=== PATIENT | male | born 1950 | race Caucasian/White ===

== ENCOUNTER → 2018-06-20 08:25 | Outpatient (CLI) | payer OTHER, SELFPAY ==
[2018-06-20 09:50] LABS: Add Manual Diff / Slide Review NO; Basophils Absolute Auto 0 /uL (0-100); Basophils Percent Auto 0.2 % (0-2); Eosinophils Absolute Auto 200 /uL (0-450); Eosinophils Percent Auto 3.3 % (2-4); Hematocrit 45.2 % (41-53); Hemoglobin 15.8 g/dL (13.5-17.5); Lymphocytes Absolute Auto 1100 /uL (1100-4500); Lymphocytes Percent Auto 19.9 % (25-40); Mean Corpuscular Hemoglobin 31.6 PG (26-34); Mean Corpuscular Volume 90.4 fL (80-100); Monocytes Absolute Auto 300 /uL (0-900); Monocytes Percent Auto 6.2 % (3-14); Neutrophils Absolute Auto 3900 /uL (1500-7000); Neutrophils Percent Auto 70.4 % (50-75); Platelet Count 156 X10^3/uL (150-400); Red Cell Distribution Width 14.5 % (11.6-14.8); White Blood Cell Count 5.6 X10^3/uL (4.5-11.0)
[2018-06-20 10:19] LABS: Alanine Aminotransferase 45 IU/L (21-72); Albumin 4.6 g/dL (3.5-5.0); Albumin Globulin Ratio 1.9 (1.0-2.8); Alkaline Phosphatase 62 U/L (38-126); Aspartate Aminotransferase 35 IU/L (17-59); BUN Creatinine Ratio 13.1 (6-22); Blood Urea Nitrogen 17 mg/dL (9-20); Calcium 9.4 mg/dL (8.4-10.2); Carbon Dioxide 27 mmol/L (22-32); Chloride 102 mmol/L (98-107); Cholesterol 139 mg/dL (140-199); Estimated Glomerular Filt Rate 55.1 mL/min (>60); Globulin 2.4 g/dL (1.7-4.1); Glucose 119 mg/dL (80-110); HDL Cholesterol 38 mg/dL (40-60); HEMOLYSIS < 15 (0-50); LDL Cholesterol Calculated 63 mg/dL (<100); Potassium 4.3 mmol/L (3.4-5.1); Sodium 140 mmol/L (137-145); Triglycerides 189 mg/dL (35-150)
[2018-06-20 10:44] LABS: Prostate Specific Antigen 2.01 ng/mL (0.10-4.00)
[2018-06-20 11:03] LABS: Hep C Virus Ab w/Reflex Quant NEGATIVE s/c (NEGATIVE)
== END ==
PROVIDERS: PCP Internal Medicine; Visit Provider Internal Medicine
DX: I10 Essential (primary) hypertension (principal); M54.40 Lumbago with sciatica, unspecified side; Z00.00 Encounter for general adult medical examination without abnormal findings
CPT/HCPCS: 36415; 80053; 80061; 84153; 85025; 86803

== ENCOUNTER → 2018-09-12 06:55 | Outpatient (CLI) | payer OTHER, SELFPAY ==
--- NOTE | 2018-09-12 06:58 | DI.MRI.S_ITS ---
PROCEDURE: MR LUMBAR SPINE WO CON INDICATIONS: Low back pain TECHNIQUE: Noncontrast sagittal T1 spin echo and T2 fast echo, sagittal STIR, axial T1 and T2 fast spin echo through the lumbar spine. In cases with scoliosis, additional coronal T2 fast spin echo may be performed. COMPARISON: [facility], CR, XR LUMBAR SPINE MIN 4V, 09/12/2018, 7:58. FINDINGS: Image quality: Excellent. Alignment and Curvature: There is normal bony alignment. Bone Marrow: Marrow is of normal overall signal. No acute vertebral body compression fractures. Spinal Cord: Conus medullaris terminates at the L1-L2 level. Visualized cord demonstrates normal signal and size. Mildly prominent central canal at the level of T12. Paraspinous Soft Tissues: No paravertebral masses. L1-L2: Mild disc bulge. No canal stenosis or foraminal stenosis. Facet joints are unremarkable. L2-L3: Normal appearance. L3-L4: No canal stenosis or foraminal stenosis. Right facet hypertrophy. L4-L5: Diffuse disc bulge, eccentric to the right, with deviation of the right L5 nerve root posteriorly in the right lateral recess. Bilateral facet hypertrophy. Moderate right foraminal narrowing with flattening of the right L4 nerve root sleeve. L5-S1: No canal stenosis. Bilateral facet hypertrophy. Mild bilateral foraminal narrowing. IMPRESSION: 1. Multilevel facet hypertrophy as described above 2. At L4-L5, the right L5 nerve root is mildly deviated posteriorly in the right lateral recess secondary to disc bulge. There is also moderate right foraminal narrowing with flattening of the right L4 nerve root sleeve. Dictated by: Isai Moore M.D. on 09/12/2018 at 8:51 Approved by: Isai Moore M.D. on 09/12/2018 at 9:00
--- NOTE | 2018-09-12 06:58 | DI.RAD.S_ITS ---
PROCEDURE: XR LUMBAR SPINE MIN 4V INDICATIONS: Low back pain TECHNIQUE: 4 views of the lumbar spine were acquired. COMPARISON: Outside Facility, RG, XR L-SPINE 2-3V, 04/12/2008, 14:39. FINDINGS: Bones: No fracture or focal osseous destruction. Multilevel degenerative endplate sclerosis and spurring. Diffuse facet arthropathy. Diffuse mild uniform narrowing of lumbar disc spaces. Moderate bilateral hip degeneration. Soft tissues: Incidentally noted presumed cholelithiasis. Oblique images: No pars defects. IMPRESSION: Mild diffuse lumbar spondylosis without definite interval change since 04/12/08. Diffuse facet arthropathy, progressed since the prior study. Incidental chronic cholelithiasis. Dictated by: Rik Tsai M.D. on 09/12/2018 at 11:08 Approved by: Rik Tsai M.D. on 09/12/2018 at 11:10
== END ==
PROVIDERS: PCP Internal Medicine; Visit Provider Physical Medicine & Rehabilitation
DX: M51.26 Other intervertebral disc displacement, lumbar region (principal); M48.061 Spinal stenosis, lumbar region without neurogenic claudication; M47.817 Spondylosis without myelopathy or radiculopathy, lumbosacral region
CPT/HCPCS: 72110; 72148

== ENCOUNTER 2018-09-25 14:40 | Outpatient (CLI) | payer OTHER, SELFPAY ==
[2018-09-25] VITALS (8 sets, daily range): BP systolic 111–129; BP diastolic 66–81; PULSE 67–85; RESP 16; TEMP 36.6; O2SAT 94–96
--- NOTE | 2018-09-25 14:42 | DI.RAD.S_ITS ---
PROCEDURE: PAIN L/S TRANSFORAMINAL INJECT INDICATIONS: RADICULOPATHY FINDINGS: Fluoroscopic spot filming was performed to verify placement of spinal needles at the right L4-5 level(s), as labeled on the films. Appropriate location(s) of the needle tip(s) was confirmed by injection of iodinated contrast. IMPRESSION: Pleural guidance was provided intraoperatively for right L5 transforaminal epidural steroid injection.. Dictated by: Arian Pompa M.D. on 09/26/2018 at 10:46 Approved by: Arian Pompa M.D. on 09/26/2018 at 10:47
[2018-09-25] MEDS: MIDAZOLAM 5 MG/5 ML VIAL IV (15:33)
[2018-09-25] MEDS: fentaNYL 100 MCG/2 ML INJ 50 MCG IV (15:33)
[2018-09-25] MEDS: BUPIVACAINE 0.25% (PF) VIAL 2 ML INJ (15:41)
[2018-09-25] MEDS: BETAMETHASONE 30 MG/5 ML MDV 12 MG INJ (15:41)
[2018-09-25] MEDS: IOPAMIDOL 15 ML VIAL 3 ML INJ (15:41)
[2018-09-25] MEDS: DEXAMETHASONE 10 MG/ML VIAL INJ (15:41)
--- NOTE | 2018-09-25 15:43 | PC.NURSE ---
ASSISTING PT OFF TABLE AND TRANSPORTING TO POST PROC AREA IN STABLE CONDITION
--- NOTE | 2018-09-25 15:49 | PC.NURSE ---
Pt returned via wheelchair awake and alert, able to transfer from w/c to chair with standby assist. Resumed monitoring from Cheyenne HAMMONDS.
--- NOTE | 2018-09-25 15:50 | P.PCN_ITS ---
Procedures Date/Time Date of procedure: 09/25/18 Time of procedure: 15:48 General Procedure description: PREOP DIAGNOSIS 1. FORMAINAL STENOSIS WITH LE SYMPTOMS POST OP DIAGNOSIS 1. FORMAINAL STENOSIS WITH LE SYMPTOMS PROCEDURES 1. FLUOROSCOPICALLY GUIDED CONTRAST CONTROLLED TRANSFORAMINAL EPIDURAL STEROID INJECTION - RIGHT L4/5 TFESI PHYSICIAN: Rick Arriaga DO INDICATIONS: Noel is referred by Dr. Cohen for treatment of Foraminal Stenosis with Right LE Symptoms FINDINGS Foraminal Nerve Root Compression secondary to disc disease and facet hypertrophy DESCRIPTION OF PROCEDURE: Following review of allergy and review of potential side effects and complications, including, but not necessarily limited to, infection, allergic reaction, local tissue breakdown, stroke, temporary or permanent nerve injury, paralysis, and possible , the patient indicated that the patient understood and agreed to proceed. An informed consent document was signed by the patient, witnessed by a nurse, and placed in the patient's chart. Additionally, other treatment options including medications, modalities, and physical therapy were reviewed with the patient. After review of previous anaesthesic history and IV conscious sedation the patient was deemed safe to proceed with todays procedure with IV conscious sedation as ASA class II designation. Safety time-out was performed to confirm patient ID, procedure to be performed and site of procedure. IV sedation was accomplished with a combination of 2mg of Versed and 50mcg of Fentanyl was administered by the RN after DO order, titrated to patient comfort during the course of the procedure while the patient remained responsive to all verbal commands In the prone position following sterile prep and drape of the lumbar region, the Right L4/5 posterior neuroforamen was identified fluoroscopically. The skin was anesthetized via a 25-gauge 1.5-inch needle with 1% lidocaine solution. At this point, a 25-gauge 3.5-inch spinal needle was atraumatically introduced and advan oliverio under fluoroscopic guidance through the posterior Right L4/5 neuroforamen to approximately the anterior aspect of the canal. Depth was confirmed on lateral view. Following negative aspiration, injection of approximately 1.5 cc of Isovue 200 under live fluoroscopy in the AP view confirmed excellent flow along the nerve root, into the epidural space without vascular or intrathecal uptake observed Radiological data, including multiple fluoroscopic views of the lumbosacral spine, reveal a spinal needle at the right L4/5 posterior neuroforamen. Subsequent views show flow of contrast material flowing superiorly and inferiorly along the nerve root confirming epidural flow. Subsequently, a test dose of 1.5 cc of 1% lidocaine solution was administered and patient was observed for two minutes for signs or symptoms of complications, including abdominal pain, shortness of breath, bilateral upper or lower extremity weakness, nausea and vomiting, prior to steroid injection. At this point, a total of 3cc or 10mg of dexamethasone and 12mg of betamethasone was injected without incident. The procedure tolerated the procedure well without signs or symptoms of complications prior to transfer to the recovery area continued monitoring without incident.The patient was then transferred to the recovery area where they were observed for an appropriate time after the injection. The patient reported a VAS score of 7 prior to the procedure and a post- procedure VAS of 0. Total Fluoroscopy Time: 20.9 seconds Total Conscious Sedation Time: 24min POST OP INSTRUCTIONS The patient was provided a Pain Log to continue to record their response to the target-specific procedure prior to follow-up visit with their referring physician. Additionally, specific post-injection care instructions and a contact number to our office were provided if concerns arise regarding possible complications associated with the procedure are suspected. Rick Arriaga, Complications: none
== END 2018-09-25 16:08 ==
LOC: RAD 14:41
PROVIDERS: PCP Internal Medicine; Visit Provider Physical Medicine & Rehabilitation
DX: M54.17 Radiculopathy, lumbosacral region (principal); M54.16 Radiculopathy, lumbar region; M51.26 Other intervertebral disc displacement, lumbar region
CPT/HCPCS: 64483; 99152; J0702; J1100; J2250; J3010

== ENCOUNTER → 2018-12-03 10:56 | Outpatient (CLI) | payer OTHER, SELFPAY ==
[2018-12-03 12:22] LABS: Alanine Aminotransferase 33 IU/L (21-72); Albumin 4.3 g/dL (3.5-5.0); Albumin Globulin Ratio 1.8 (1.0-2.8); Alkaline Phosphatase 53 U/L (38-126); Aspartate Aminotransferase 29 IU/L (17-59); BUN Creatinine Ratio 12.7 (6-22); Bilirubin Total 1.2 mg/dL (0.2-1.3); Blood Urea Nitrogen 19 mg/dL (9-20); Calcium 8.7 mg/dL (8.4-10.2); Carbon Dioxide 26 mmol/L (22-32); Chloride 103 mmol/L (98-107); Cholesterol 152 mg/dL (140-199); Estimated Glomerular Filt Rate 46.5 mL/min (>60); Globulin 2.4 g/dL (1.7-4.1); Glucose 109 mg/dL (80-110); HDL Cholesterol 42 mg/dL (40-60); HEMOLYSIS < 15 (0-50); LDL Cholesterol Calculated 69 mg/dL (<100); Potassium 4.2 mmol/L (3.4-5.1); Sodium 140 mmol/L (137-145); Total Protein 6.7 g/dL (6.3-8.2); Triglycerides 205 mg/dL (35-150)
[2018-12-03 12:49] LABS: Prostate Specific Antigen 2.03 ng/mL (0.10-4.00)
== END ==
PROVIDERS: PCP Internal Medicine; Visit Provider Internal Medicine
DX: N40.1 Benign prostatic hyperplasia with lower urinary tract symptoms (principal); I10 Essential (primary) hypertension
CPT/HCPCS: 36415; 80053; 80061; 84153

== ENCOUNTER → 2019-05-02 11:32 | Outpatient (CLI) | payer OTHER, SELFPAY ==
[2019-05-02 12:26] LABS: BUN Creatinine Ratio 14.2 (6-22); Blood Urea Nitrogen 17 mg/dL (9-20); Calcium 9.1 mg/dL (8.4-10.2); Carbon Dioxide 30 mmol/L (22-32); Chloride 104 mmol/L (98-107); Estimated Glomerular Filt Rate > 60.0 mL/min (>60); Glucose 113 mg/dL (80-110); HEMOLYSIS < 15 (0-50); Potassium 4.6 mmol/L (3.4-5.1); Sodium 141 mmol/L (137-145)
== END ==
PROVIDERS: PCP Internal Medicine; Referring Provider Registered Nurse; Visit Provider Registered Nurse
DX: N28.9 Disorder of kidney and ureter, unspecified (principal)
CPT/HCPCS: 36415; 80048

== ENCOUNTER → 2019-08-13 10:28 | Outpatient (CLI) | payer OTHER, SELFPAY ==
[2019-08-14 09:49] LABS: COVID19 Sendout Not Detected (Not Detect)
== END ==
PROVIDERS: PCP Internal Medicine; Visit Provider Registered Nurse
DX: Z01.818 Encounter for other preprocedural examination (principal)
CPT/HCPCS: 87635

== ENCOUNTER 2019-08-15 12:20 | Outpatient (CLI) | payer OTHER, SELFPAY ==
[2019-08-15] VITALS (8 sets, daily range): BP systolic 126–147; BP diastolic 82–98; PULSE 67–81; RESP 14–16; TEMP 37.1; O2SAT 94–98
--- NOTE | 2019-08-15 12:22 | DI.RAD.S_ITS ---
PROCEDURE: PAIN L/S FACET INJ/BLK 1ST BISHNU COMPARISON: None. INDICATIONS: SPONDYLSOIS FINDINGS: Right-sided facet joint needle tip localization has been achieved at the L4-5 and L5-S1 levels. IMPRESSION: Successful needle tip localization of the facet joints as discussed, lower lumbosacral spine on the right. Dictated by: Sanjay Treadwell M.D. on 08/15/2019 at 14:33 Approved by: Sanjay Treadwell M.D. on 08/15/2019 at 14:34
[2019-08-15] MEDS: MIDAZOLAM 5 MG/5 ML VIAL IV (13:25)
[2019-08-15] MEDS: fentaNYL 100 MCG/2 ML INJ 50 MCG IV (13:26)
[2019-08-15] MEDS: BETAMETHASONE 30 MG/5 ML MDV 12 MG INJ (13:26)
[2019-08-15] MEDS: BUPIVACAINE 0.5% (PF) VIAL 2 ML INJ (13:27)
[2019-08-15] MEDS: IOPAMIDOL 15 ML VIAL 3 ML INJ (13:27)
--- NOTE | 2019-08-15 13:30 | PC.NURSE ---
ASSISTING PT OFF TABLE AND TRANSPORTING TO POST PROC AREA IN STABLE CONDITION. PASSING RN CARE OF PT OFF TO [facility] CHEATHAM.
--- NOTE | 2019-08-15 13:38 | P.PCN_ITS ---
Procedures Date/Time Date of procedure: 08/15/19 Time of procedure: 13:39 General Procedure description: PREOP DIAGNOSIS 1. FACET ARTHROPATHY 2. AXIAL LBP 3. MULTILEVEL DDD POST OP DIAGNOSIS 1. FACET ARTHROPATHY 2. AXIAL LBP 3. MULTILEVEL DDD PROCEDURES 1. FLUORSCOPICALLY GUIDED CONTRAST CONTROLLED FACET JOINT INJECTIONS BILATERAL L4/5, L5/S1 PHYSICIAN: DO BENY Cortez Noel is referred by for treatment of Axial LBP FINDINGS Multilevel Facet Arthropathy with Clinically significant axial LBP DESCRIPTION OF PROCEDURE Fluoroscopically guided, contrast-controlled bilateral L4/5, L5/S1 facet joint injections. Following review of allergy and review of potential side effects and complications, including, but not necessarily limited to, infection, allergic reaction, local tissue breakdown, stroke, temporary or permanent nerve injury, paralysis, and possible , the patient indicated that the patient understood and agreed to proceed. An informed consent document was signed by the patient, witnessed by a nurse, and placed in the patient's chart. Additionally, other treatment options including medications, modalities, and physical therapy were reviewed with the patient. After review of previous anaesthesic history and IV conscious sedation the patient was deemed safe to proceed with todays procedure with IV conscious sedation as ASA class II designation. Safety time-out was performed to confirm patient ID, procedure to be performed and site of procedure. IV sedation was accomplished with a combination of 2mg of Versed and 50mcg of Fentanyl was administered by the RN after DO order, titrated to patient comfort during the course of the procedure while the patient remained responsive to all verbal commands In the prone position, following sterile prep and drape of the lumbar region, the posterior aspect of the L4/5, L5/S1 facet joints were identified fluoroscopically. The skin was anesthetized via a 25-gauge 1.5-inch needle with 1% lidocaine solution into the corresponding facet joints. At this point, a 22- gauge 3.5-inch spinal needle was atraumatically introduced and advanced under fluoroscopic guidance into the corresponding facet joints. Following negative aspiration, injections of approximately 0.2cc of Isovue 200 confirmed interarticular placement without vascular uptake. The identical procedure was then performed at the L4/5, L5/S1 facet joints on the left. Radiological data, including multiple fluoroscopic views of the lumbosacral spine, reveal a spinal needle at the L4/5, L5/S1 facet joints bilaterally. Subsequent views show flow of contrast material both superiorly and inferiorly within the joint space without vascular or intrathecal uptake. At this point, a total of 0.5cc including a mixture of 0.25cc Marcaine and 0.25cc betamethasone was injected without complication into each of the corresponding facet joints. The patient tolerated the procedure well without signs or symptoms of complications prior to transfer to the recovery area continued monitoring without incident. The patient was then transferred to the recovery area where they were observed for an appropriate period of time after the injection. The patient reported a VAS score of 7 prior to the procedure and a post- procedure VAS of 0. Total Fluoroscopy Time: 11 seconds Total Conscious Sedation Time: 24 min POST OP INSTRUCTIONS The patient was provided a Pain Log to continue to record their response to the target-specific procedure prior to follow-up visit with their referring physician. Additionally, specific post-injection care instructions and a contact number to our office were provided if concerns arise regarding possible complications associated with the procedure are suspected. Rick Arriaga, Complications: none
== END 2019-08-15 14:00 | disposition home or self-care (01) ==
PROVIDERS: PCP Internal Medicine; Referring Provider Internal Medicine; Visit Provider Physical Medicine & Rehabilitation
DX: M47.816 Spondylosis without myelopathy or radiculopathy, lumbar region (principal); M47.817 Spondylosis without myelopathy or radiculopathy, lumbosacral region; M54.5 Low back pain; M51.36 Other intervertebral disc degeneration, lumbar region; M51.37 Other intervertebral disc degeneration, lumbosacral region
CPT/HCPCS: 64493; 64494; 99152; J0702; J2250; J3010

== ENCOUNTER → 2019-11-02 09:56 | Outpatient (CLI) | payer OTHER, SELFPAY ==
[2019-11-03 20:42] LABS: COVID19 Sendout Not Detected (Not Detect)
== END ==
PROVIDERS: PCP Internal Medicine; Visit Provider Physician Assistant
DX: Z11.59 Encounter for screening for other viral diseases (principal)
CPT/HCPCS: 87635

== ENCOUNTER 2019-11-05 09:24 | Outpatient (CLI) | payer OTHER, SELFPAY ==
[2019-11-05] VITALS (8 sets, daily range): BP systolic 121–175; BP diastolic 71–103; PULSE 61–67; RESP 10–15; O2SAT 13–100
--- NOTE | 2019-11-05 09:26 | DI.RAD.S_ITS ---
PROCEDURE: PAIN L/S FACET INJ/BLK 1ST BISHNU COMPARISON: [facility], , PAIN L/S FACET INJ/BLK 1ST BISHNU, 08/15/2019, 12:20. INDICATIONS: SPONDYLOSIS Fluoroscopic spot filming was performed to verify placement of spinal needles at the L4, L5, S1 level(s), as labeled on the films. Appropriate location(s) of the needle tip(s) was confirmed by injection of iodinated contrast. Dictated by: Rik Tsai M.D. on 11/05/2019 at 14:22 Approved by: Rik Tsai M.D. on 11/05/2019 at 14:23
[2019-11-05] MEDS: fentaNYL 100 MCG/2 ML INJ 50 MCG IV (10:40)
[2019-11-05] MEDS: BUPIVACAINE 0.5% (PF) VIAL 5 ML INJ (10:41)
[2019-11-05] MEDS: LIDOCAINE 1% 20 ML 10 ML INJ (10:42)
[2019-11-05] MEDS: IOPAMIDOL 15 ML VIAL 3 ML INJ (10:42)
[2019-11-05] MEDS: MIDAZOLAM 5 MG/5 ML VIAL IV (10:44)
--- NOTE | 2019-11-05 10:55 | P.PCN_ITS ---
Date/Time/Diagnoses Date of procedure: 11/05/19 Time of procedure: 10:55 Pre-procedure diagnosis: 1. FACET ARTHROPATHY Post-procedure diagnosis: same Procedure Notes Procedure: 1. BILATERAL- L4, L5 and S1 DIAGNOSTIC MB BLOCKS with LA Anesthetic Indications: Noel is referred by Dr. Cohen for treatment of Bilateral Axial LBP. Physician: Rick Arriaga Total Fluoroscopy time (seconds): 13 Total sedation minutes: 14 Complications: none Procedure in detail & Post-procedure care: DESCRIPTION OF PROCEDURE Fluoroscopically guided, contrast-controlled bilateral L4, L5 and S1 medial branch blocks with 0.5cc of 0.5% Marcaine. Following review of allergy and review of potential side effects and complications, including, but not necessarily limited to, infection, allergic reaction, local tissue breakdown, nerve injury, paralysis, stroke and possible , the patient indicated that the patient understood and agreed to proceed. An informed consent document was signed by the patient, witnessed by a nurse, and placed in the patient's chart. After review of previous anaesthesic history and IV conscious sedation the patient was deemed safe to proceed with today's procedure with IV conscious sedation as ASA class II designation. Safety time-out was performed to confirm patient ID, procedure to be performed and site of procedure. IV sedation was accomplished with a combination of 3mg of Versed and 50mcg of Fentanyl was administered by the RN after DO order, titrated to patient comfort during the course of the procedure while the patient remained responsive to all verbal commands In the prone position, following sterile prep and drape of the lumbar region, the right L4, L5 and S1 anatomical location of the medial branch of the dorsal ramus was identified fluoroscopically. Subsequently an anesthetic skin wheal using 1% lidocaine solution was initiated at each of the anatomical spots. Subsequently then a 22-gauge 3.5-inch spinal needle was atraumatically introduced and advanced under fluoroscopic guidance at each of the corresponding sites at the right L4, L5 and S1 MB. After negative aspiration, 0.2cc of Isovue 200 was injected, confirming placement without vascular or intrathecal uptake. Subsequently then 0.5cc of 0.5% Marcaine solution was injected at each of the corresponding sites at the right L4, L5 and S1 medial branch locations. The identical procedure was replicated on the left. The patient tolerated the procedure well without signs or symptoms of complications prior to transfer to the recovery area continued monitoring without incident. Post-procedure, the patient was monitored initiating provocative activities to measure the amount of relief from block of the facetogenic pain. The patient reported a VAS of 7 prior to the procedure and a post-procedure VAS of 1. It has been a pleasure to assist in the diagnostic and therapeutic care of your patient. POST OP INSTRUCTIONS The patient was provided with a Pain Log to complete over the next several hours and subsequent days prior to the patient's follow up with the ordering physician. If the patient has practicing md anesthesiologist relief to the solution applied, then they may be a candidate for medial branch rhizotomy. The patient is aware, was provided, once again, with a Pain Log and will follow up with the referring physician for review and clinical correlation
--- NOTE | 2019-11-05 12:57 | PC.NURSE ---
1050 Pt tolerated procedure well, assisted from table to wc, rtn to pre proc room for further monitoring
== END 2019-11-05 11:20 | disposition home or self-care (01) ==
LOC: RAD 09:25
PROVIDERS: PCP Internal Medicine; Referring Provider Internal Medicine; Visit Provider Physical Medicine & Rehabilitation
DX: M47.817 Spondylosis without myelopathy or radiculopathy, lumbosacral region (principal); M47.816 Spondylosis without myelopathy or radiculopathy, lumbar region
CPT/HCPCS: 64493; 64494; 99152; J2250; J3010

== ENCOUNTER → 2019-12-25 11:48 | Outpatient (CLI) | payer OTHER, SELFPAY ==
--- NOTE | 2019-12-25 11:49 | DI.RAD.S_ITS ---
PROCEDURE: XR LUMBAR SPINE MIN 4V INDICATIONS: PAIN TECHNIQUE: 5 views of the lumbar spine were acquired. COMPARISON: [facility], CR, XR LUMBAR SPINE MIN 4V, 09/12/2018, 7:58. FINDINGS: Bones: Five nonrib-bearing vertebrae are present. There is normal bony alignment. No vertebral body compression fractures. No suspicious bony lesions. The degenerative disc disease along the lumbosacral spine has not worsened, from 09/12/18. It is mild in overall severity. Facet osteoarthritis is moderate from L3 through S1 and becomes progressively more prominent as the lumbosacral junction is approach. This was previously present. Soft tissues: Overlying bowel gas pattern is normal. No new suspicious soft tissue calcifications and a very large gallstone is seen at the right upper quadrant.. Oblique images: No pars defects. IMPRESSION: Very large gallstone identified right upper quadrant, measuring up to 3.5 cm in maximal axial dimension. A stone of this size has potential future risk for development of gallstone ileus. Surgical consultation may be warranted despite absence of focal pain in this area at this time. No worsening of degenerative disc disease from 09/12/18. Facet osteoarthritis is moderate at L3-4 and becomes more prominent at L4-5 and L5-S1 with facet osteoarthritis as the specific degenerative change that progresses as the lumbosacral junction is approached. Spinal and foraminal stenosis at L4-5 and especially L5-S1 may be present. Dictated by: Sanjay Treadwell M.D. on 12/25/2019 at 12:14 Approved by: Sanjay Treadwell M.D. on 12/25/2019 at 12:17
== END ==
PROVIDERS: PCP Internal Medicine; Referring Provider Physical Medicine & Rehabilitation; Visit Provider Physical Medicine & Rehabilitation
DX: M51.17 Intervertebral disc disorders with radiculopathy, lumbosacral region (principal); M47.26 Other spondylosis with radiculopathy, lumbar region; M47.27 Other spondylosis with radiculopathy, lumbosacral region; M48.061 Spinal stenosis, lumbar region without neurogenic claudication; M48.07 Spinal stenosis, lumbosacral region; K80.20 Calculus of gallbladder without cholecystitis without obstruction
CPT/HCPCS: 72110

== ENCOUNTER → 2020-01-13 09:31 | Outpatient (CLI) | payer OTHER, SELFPAY ==
[2020-01-14 00:29] LABS: COVID19 Sendout Not Detected (Not Detect)
== END ==
PROVIDERS: PCP Internal Medicine; Visit Provider Physician Assistant
DX: Z11.59 Encounter for screening for other viral diseases (principal)
CPT/HCPCS: 87635

== ENCOUNTER 2020-01-16 07:24 | Outpatient (CLI) | payer OTHER, SELFPAY ==
[2020-01-16] VITALS (10 sets, daily range): BP systolic 102–135; BP diastolic 60–86; PULSE 46–74; RESP 10–23; TEMP 36.2; O2SAT 92–97
--- NOTE | 2020-01-16 07:26 | DI.RAD.S_ITS ---
PROCEDURE: PAIN L/S MED/LAT N RFA INDICATIONS: SPONDYLOSIS COMPARISON: None. FINDINGS: Fluoroscopic spot filming was performed to verify placement of spinal needles at the bilateral L4, L5, and S1 nerve root level(s), as labeled on the films. Appropriate location(s) of the needle tip(s) was confirmed by injection of iodinated contrast. IMPRESSION: Successful bilateral needle tip localizations for L4, L5, and S1 bilateral rhizotomy procedures. Six total procedures. Dictated by: Sanjay Treadwell M.D. on 01/16/2020 at 9:33 Approved by: Sanjay Treadwell M.D. on 01/16/2020 at 9:34
[2020-01-16] MEDS: MIDAZOLAM 5 MG/5 ML VIAL IV (08:37)
[2020-01-16] MEDS: fentaNYL 100 MCG/2 ML INJ 50 MCG IV (08:37)
[2020-01-16] MEDS: BUPIVACAINE 0.5% (PF) VIAL 2 ML INJ (08:57)
[2020-01-16] MEDS: LIDOCAINE 1% 20 ML 10 ML INJ (08:57)
--- NOTE | 2020-01-16 09:12 | P.PCN_ITS ---
Date/Time/Diagnoses Date of procedure: 01/16/20 Time of procedure: 09:12 Pre-procedure diagnosis: 1. RECALCITRANT FACET ARTHROPATHY Post-procedure diagnosis: same Procedure Notes Procedure: 1. BILATERAL L4 AND L5 MEDIAL BRANCH RADIOFREQUENCY NEUROTOMY AND S1 DORSAL RAMUS BRANCH RADIOFREQUENCY NEUROTOMY Indications: Noel is referred by Dr. Cohen for treatment of facet arthropathy. Physician: Rick Arriaga Total Fluoroscopy time (seconds): 18 Total sedation minutes: 27 Complications: none Procedure in detail & Post-procedure care: DESCRIPTION OF PROCEDURE Right L4 and L5 medial branch radiofrequency neurotomy and right S1 dorsal ramus radiofrequency neurotomy under fluoroscopy with conscious sedation. The patient is well known to this clinic having undergone previous facet injections with good but temporary relief. The patient has experienced appropriate, concordant relief with previous facet and median branch blocks but the patient's pain has been recalcitrant to further conservative measures. Therefore, based upon the patient's relief and persistent symptoms, the patient is considered an appropriate candidate for facet rhizotomy. All of the patient's questions regarding the risks versus benefits of the procedure, including, but not limited to, bleeding, infection, temporary as well as lasting nerve injury, paralysis, stroke, and , as well treatment alternatives were answered to satisfaction. After obtaining informed consent, denial of pertinent drug allergies, as well as being made aware of the potential risks of bleeding, infection, spinal cord trauma, paralysis, temporary and permanent nerve damage, seizure, stroke, and possible , the patient was brought to the fluoroscopy suite and positioned prone on the fluoroscopy table. The lumbar region was prepped with Betadine and covered with a fenestrated drape in the usual sterile fashion. Appropriate monitors applied including pulse oximeter, pulse, and blood pressure for regular monitoring throughout the procedure. After review of previous anaesthesic history and IV conscious sedation the patient was deemed safe to proceed with today's procedure with IV conscious sedation as ASA class II designation. Safety time-out was performed to confirm patient ID, procedure to be performed and site of procedure. IV sedation was accomplished with a combination of 2mg of Versed and 50mcg of Fentanyl admini stered by the RN after DO order, titrated to patient comfort during the course of the procedure while the patient remained responsive to all verbal commands. After local infiltration using 1% lidocaine, under fluoroscopic guidance, a 10- cm RF insulated needle with a 10-mm active tip was positioned parallel to the junction of the right sacral ala and the superior articulating process where the S1 dorsal ramus resides. Needle placement was confirmed with motor stimulation of .5v on the right which produced local stimulation without radicular component. The stimulation was then increased to 2v with, once again, only local multifidus stimulation without radicular component. The needle was then removed and the identical procedure was performed along the length of the right L5 medial branch with motor stimulation at .7v on the right. The identical procedure was once again performed along the length of the right L4 medial branch with motor stimulation of .5v on the right. The medial branches were then anesthetised with 0.5% Marcaine. This was then followed by two discreet lesions performed at 80 degrees Celsius for 90 seconds each. The identical procedure was repeated on the left. The patient tolerated the procedure well without signs or symptoms of complications prior to transfer to the recovery area continued monitoring without incident. The patient was then transferred to the recovery area where they were observed for an appropriate period of time after the injection. The patient reported a VAS score of 9 prior to the procedure and a post-procedure VAS of 0. POST OP INSTRUCTIONS The patient was provided a Pain Log to continue to record the patient's response to the target-specific procedure prior to the patient's follow-up visit with the referring physician. Additionally, specific post-injection care instructions and a contact number to our office were provided if concerns arise regarding possible complications associated with the procedure are suspected.
--- NOTE | 2020-01-16 09:46 | PC.NURSE ---
IV Removed without incident. Pt ambulated prior to discharge independently- strong slow steady gait noted. No pain at discharge.
== END 2020-01-16 09:25 | disposition home or self-care (01) ==
LOC: RAD 07:24
PROVIDERS: PCP Internal Medicine; Referring Provider Internal Medicine; Visit Provider Physical Medicine & Rehabilitation
DX: M47.816 Spondylosis without myelopathy or radiculopathy, lumbar region (principal); M47.817 Spondylosis without myelopathy or radiculopathy, lumbosacral region
CPT/HCPCS: 64635; 64636; 99152; 99153; J2250; J3010

== ENCOUNTER → 2020-04-16 10:06 | Outpatient (CLI) | payer MEDICARE, SELFPAY ==
[2020-04-16] MEDS: COVID-19 VACC #1, MRNA(MOD) 100 MCG/0.5 ML VIAL IM (10:09)
== END ==
PROVIDERS: PCP Internal Medicine; Visit Provider Internal Medicine
DX: Z23 Encounter for immunization (principal)
CPT/HCPCS: 0011A; 91301

== ENCOUNTER → 2020-05-05 14:07 | Outpatient (CLI) | payer OTHER, SELFPAY ==
[2020-05-05 16:08] LABS: COVID19 -Nasal RAPID Negative (Negative)
== END ==
PROVIDERS: PCP Internal Medicine; Visit Provider Physical Medicine & Rehabilitation
DX: Z20.822 Contact with and (suspected) exposure to COVID-19 (principal)
CPT/HCPCS: 87635; C9803

== ENCOUNTER 2020-05-07 07:24 | Outpatient (CLI) | payer OTHER, SELFPAY ==
[2020-05-07] VITALS (9 sets, daily range): BP systolic 127–141; BP diastolic 70–105; PULSE 54–66; RESP 12–16; TEMP 36.8; O2SAT 93–98
--- NOTE | 2020-05-07 07:25 | DI.RAD.S_ITS ---
PROCEDURE: PAIN L INTERLAMINAR/CAUDAL INJ INDICATIONS: SPONDYLOSIS COMPARISON: [facility], , PAIN L/S MED/LAT N RFA, 01/16/2020, 8:36. FINDINGS: Fluoroscopic spot filming was performed to verify placement of a spinal needle at the L4-L5 level, as labeled on the films. Appropriate location of the needle tip was confirmed by injection of iodinated contrast. IMPRESSION: Intraprocedural examination within normal limits. Dictated by: Anil Apodaca M.D. on 05/07/2020 at 8:13 Approved by: Anil Apodaca M.D. on 05/07/2020 at 8:14
[2020-05-07] MEDS: MIDAZOLAM 5 MG/5 ML VIAL IV (08:17)
[2020-05-07] MEDS: fentaNYL 100 MCG/2 ML INJ 50 MCG IV (08:17)
[2020-05-07] MEDS: IOPAMIDOL 15 ML VIAL 3 ML INJ (08:29)
[2020-05-07] MEDS: BUPIVACAINE 0.25% (PF) VIAL 2 ML INJ (08:29)
[2020-05-07] MEDS: BETAMETHASONE 30 MG/5 ML MDV 6 MG INJ (08:29)
[2020-05-07] MEDS: DEXAMETHASONE 10 MG/ML VIAL 20 MG INJ (08:29)
--- NOTE | 2020-05-07 08:33 | P.PCN_ITS ---
Date/Time/Diagnoses Date of procedure: 05/07/20 Time of procedure: 08:33 Pre-procedure diagnosis: 1. HNP WITH RADICULAR FEATURES, 2. MULTILEVEL CENTRAL STENOSIS, Post-procedure diagnosis: same Procedure Notes Procedure: 1. FLUOROSCOPICALLY GUIDED CONTRAST CONTROLLED INTERLAMINAR EPIDURAL STEROID INJECTION -L4/5 Indications: Noel is referred by Dr. Cohen for treatment of Bilateral Foraminal Stenosis R>L LE symptoms. Physician: Rick Arriaga Total Fluoroscopy time (seconds): 7 Total sedation minutes: 13 Complications: none Procedure in detail & Post-procedure care: FINDINGS Multilevel Central Spinal Stenosis with Nerve Root Compression DESCRIPTION OF PROCEDURE Fluoroscopically guided, contrast-controlled L4/5 translaminar epidural steroid injection. Following review of allergy and review of potential side effects and complications, including, but not necessarily limited to, infection, allergic reaction, local tissue breakdown, temporary as well as permanent nerve injury, paralysis, stroke and possible , the patient indicated that the patient understood and agreed to proceed. An informed consent document was signed by the patient, witnessed by a nurse, and placed in the patient's chart. Additionally, other treatment options including modalities, medications, and physical therapy were reviewed with the patient. After review of previous anaesthesic history and IV conscious sedation the patient was deemed safe to proceed with today?s procedure with IV conscious sedation as ASA class II designation. Safety time-out was performed to confirm patient ID, procedure to be performed and site of procedure. IV sedation was accomplished with a combination of 1mg of Versed and 50mcg of Fentanyl was administered by the RN after DO order, titrated to patient comfort during the course of the procedure while the patient remained responsive to all verbal commands In the prone position, following sterile prep and drape of the lumbar region, the L4/5 translaminar space was identified fluoroscopically. The skin was anesthetized via a 25-gauge, 1.5inch needle with 1% lidocaine solution. At this point, a 22-gauge short bevel spinal needle was atraumatically introduced and advanced under fluoroscopic guidance into the region of the L4/5 translaminar space. Depth was confirmed on lateral view. Radiological data, including multiple fluoroscopic views of the lumbar spine, reveal a spinal needle at the L4/5 translaminar space. Lateral views then show placement of the needle in the epidural space. Subsequent views show contrast material flowing superiorly and inferiorly in the epidural space. No vascular or intrathecal uptake is observed. At this point, using loss of resistance technique with saline and air, the epidural space was entered. This was confirmed following negative aspiration with injection of approximately 1.5cc of Isovue 200, showing excellent epidural flow without vascular or intrathecal uptake. At this point, 1cc of 1% lidocaine solution combined with 3cc or 20mg of dexamethasone and 6mg betamethasone was injected without incident. The patient tolerated the procedure well without signs or symptoms of compli cations prior to transfer to the recovery area continued monitoring without incident. The patient was then transferred to the recovery area where they were observed for an appropriate period of time after the injection. The patient reported a VAS score of 6 prior to the procedure and a post- procedure VAS of 0. POST OP INSTRUCTIONS The patient was provided a Pain Log to continue to record their response to the target-specific procedure prior to follow-up visit with their referring physician. Additionally, specific post-injection care instructions and a contact number to our office were provided if concerns arise regarding possible complications associated with the procedure are suspected.
== END 2020-05-07 09:00 | disposition home or self-care (01) ==
LOC: RAD 07:24
PROVIDERS: PCP Internal Medicine; Referring Provider Internal Medicine; Visit Provider Physical Medicine & Rehabilitation
DX: M51.16 Intervertebral disc disorders with radiculopathy, lumbar region (principal); M48.061 Spinal stenosis, lumbar region without neurogenic claudication
CPT/HCPCS: 62323; 99152; J0702; J1100; J2250; J3010

== ENCOUNTER → 2020-05-14 09:07 | Outpatient (CLI) | payer MEDICARE, SELFPAY ==
[2020-05-14] MEDS: COVID-19 VACC #2, MRNA(MOD) 100 MCG/0.5 ML VIAL IM (09:11)
== END ==
PROVIDERS: PCP Internal Medicine; Visit Provider Internal Medicine
DX: Z23 Encounter for immunization (principal)
CPT/HCPCS: 0012A; 91301

== ENCOUNTER → 2022-03-25 13:57 | Outpatient (CLI) | payer MEDICARE, SELFPAY ==
[2022-03-25 17:18] LABS: BUN Creatinine Ratio 15.9 (6-22); Blood Urea Nitrogen 23 mg/dL (9-20); Calcium 8.6 mg/dL (8.4-10.2); Carbon Dioxide 28 mmol/L (22-32); Chloride 103 mmol/L (98-107); Estimated Glomerular Filt Rate 52 mL/min (>60); Glucose 75 mg/dL (80-110); HEMOLYSIS < 15 (0-50); Potassium 4.5 mmol/L (3.4-5.1); Sodium 140 mmol/L (137-145)
== END ==
PROVIDERS: PCP Internal Medicine; Referring Provider Urology; Visit Provider Urology
DX: Z01.812 Encounter for preprocedural laboratory examination (principal)
CPT/HCPCS: 36415; 80048

== ENCOUNTER → 2022-03-28 13:35 | Outpatient (CLI) | payer OTHER, SELFPAY ==
--- NOTE | 2022-03-28 13:36 | DI.CT.S_ITS ---
PROCEDURE: CT ABDOMEN PELVIS WO/W CON INDICATIONS: Microscopic hematuria, exposure to secondhand smoke TECHNIQUE: Optional 5 mm thick noncontrast images acquired from the diaphragm to the symphysis pubis. After the administration of intravenous contrast, 5 mm thick images acquired from the diaphragm to the symphysis pubis after a 10-minute delay. 2 mm thick coronal and sagittal reformats were then performed of the kidneys and ureters. For radiation dose reduction, the following was used: automated exposure control, adjustment of mA and/or kV according to patient size. COMPARISON: None. FINDINGS: Image quality: Excellent. Lung bases: Lung bases are clear. Heart size is normal. There is focal thickening of the anterior pericardium in the substernal region. No dependent pericardial effusion. Urinary system: Both kidneys are normal in size, without hydronephrosis or nephrolithiasis on pre-contrast images. No perinephric fat stranding. There is normal bilateral renal enhancement. There is a parapelvic/corticomedullary/exophytic cyst arising from the lateral aspect of the left kidney measuring 11.8 x 11.2 x 10.2 cm. A few subcentimeter cortical cysts are present in the right kidney. The left renal cyst has mass effect on the upper pole collecting system, and no intrinsic collecting system filling defects are seen. Renal calyces appear normal in morphology when filled with contrast. Opacified portions of both ureters demonstrate normal caliber. Bladder wall thickness is normal. No calcified bladder stones. Other solid organs: Liver is normal in size and enhancement. Mild hepatic steatosis. Gallbladder is partially decompressed and contains a 3.1 x 2.8 cm calcified stone at the fundus. Biliary system is non dilated. Pancreas enhances normally. Spleen is enlarged measuring 16.2 cm in AP diameter. No adrenal nodules. Peritoneum and bowel: Mild descending colon diverticulosis. Normal appendix. Stomach and small bowel are decompressed. Bowel loops demonstrate normal wall thickness and caliber. No free fluid or air. Nodes and vessels: No retroperitoneal or mesenteric adenopathy by size criteria. Aorta and inferior vena cava are normal in size. Abdominal wall: No ventral hernias. Pelvis: No pathologic free pelvic fluid. No inguinal hernias or adenopathy. Surgical change of prior right inguinal hernia repair with mesh. The prostate gland is mildly enlarged. Bones: No suspicious bony lesions. No vertebral body compression fractures. IMPRESSION: 1. 11.8 cm left renal cyst. Otherwise unremarkable urinary system. 2. 3.1 cm calcified gallstone. 3. Mild hepatic steatosis. 4. Mild splenomegaly. 5. Mild prostatomegaly. Dictated by: Hillary Marques M.D. on 03/28/2022 at 16:54 Approved by: Hillary Marques M.D. on 03/28/2022 at 17:03
== END ==
PROVIDERS: PCP Internal Medicine; Referring Provider Urology; Visit Provider Urology
DX: R31.29 Other microscopic hematuria (principal); N28.1 Cyst of kidney, acquired; K80.20 Calculus of gallbladder without cholecystitis without obstruction; K76.0 Fatty (change of) liver, not elsewhere classified; R16.1 Splenomegaly, not elsewhere classified; N40.0 Benign prostatic hyperplasia without lower urinary tract symptoms; K57.90 Diverticulosis of intestine, part unspecified, without perforation or abscess without bleeding; Z77.22 Contact with and (suspected) exposure to environmental tobacco smoke (acute) (chronic)
CPT/HCPCS: 74178; Q9967

== ENCOUNTER 2022-05-26 08:43 | Outpatient (CLI) | payer MEDICARE, SELFPAY ==
[2022-05-26] VITALS (8 sets, daily range): BP systolic 117–135; BP diastolic 69–79; PULSE 65–75; RESP 14–19; O2SAT 95–98
--- NOTE | 2022-05-26 08:45 | DI.RAD.S_ITS ---
PROCEDURE: PAIN L INTERLAMINAR/CAUDAL INJ INDICATIONS: SPONDYLOSIS COMPARISON: [facility], , PAIN L INTERLAMINAR/CAUDAL INJ, 05/07/2020, 8:24. FINDINGS: Fluoroscopic spot filming was performed to verify placement of spinal needles at the L4-L5 level(s), as labeled on the films. Appropriate location(s) of the needle tip(s) was confirmed by injection of iodinated contrast. IMPRESSION: Intraprocedural fluoroscopy was provided for guidance and anatomical localization. Please see the procedure report for further details. Dictated by: Florian Solomon M.D. on 05/26/2022 at 18:58 Approved by: Florian Solomon M.D. on 05/26/2022 at 18:58
[2022-05-26] MEDS: MIDAZOLAM 2 MG/2 ML VIAL 1 MG IV (09:20)
[2022-05-26] MEDS: IOPAMIDOL 15 ML VIAL 3 ML INJ (09:22)
[2022-05-26] MEDS: DEXAMETHASONE 10 MG/ML VIAL 20 MG INJ (09:23)
[2022-05-26] MEDS: BUPIVACAINE 0.25% (PF) VIAL 2 ML INJ (09:23)
[2022-05-26] MEDS: BETAMETHASONE 30 MG/5 ML MDV 6 MG INJ (09:23)
--- NOTE | 2022-05-26 09:36 | P.PCN_ITS ---
Date/Time/Diagnoses Date of procedure: 05/26/22 Time of procedure: 09:36 Pre-procedure diagnosis: 1. HNP WITH RADICULAR FEATURES, 2. MULTILEVEL CENTRAL STENOSIS, Post-procedure diagnosis: same Procedure Notes Procedure: 1. FLUOROSCOPICALLY GUIDED CONTRAST CONTROLLED INTERLAMINAR EPIDURAL STEROID INJECTION -L4/5 Indications: Noel is referred by Dr. Saunders for treatment of Bilateral Foraminal Stenosis R>L LE symptoms. Physician: Rick Arriaga Total Fluoroscopy time (seconds): 8 Total sedation minutes: 11 Complications: none Procedure in detail & Post-procedure care: FINDINGS Multilevel Central Spinal Stenosis with Nerve Root Compression DESCRIPTION OF PROCEDURE Fluoroscopically guided, contrast-controlled L4/5 translaminar epidural steroid injection. Following review of allergy and review of potential side effects and complications, including, but not necessarily limited to, infection, allergic reaction, local tissue breakdown, temporary as well as permanent nerve injury, paralysis, stroke and possible , the patient indicated that the patient understood and agreed to proceed. An informed consent document was signed by the patient, witnessed by a nurse, and placed in the patient's chart. Additionally, other treatment options including modalities, medications, and physical therapy were reviewed with the patient. After review of previous anaesthesic history and IV conscious sedation the patient was deemed safe to proceed with today?s procedure with IV conscious sedation as ASA class II designation. Safety time-out was performed to confirm patient ID, procedure to be performed and site of procedure. IV sedation was accomplished with a combination of 1mg of Versed was administered by the RN after DO order, titrated to patient comfort during the course of the procedure while the patient remained responsive to all verbal commands In the prone position, following sterile prep and drape of the lumbar region, the L4/5 translaminar space was identified fluoroscopically. The skin was anesthetized via a 25-gauge, 1.5inch needle with 1% lidocaine solution. At this point, a 22-gauge short bevel spinal needle was atraumatically introduced and advanced under fluoroscopic guidance into the region of the L4/5 translaminar space. Depth was confirmed on lateral view. Radiological data, including multiple fluoroscopic views of the lumbar spine, reveal a spinal needle at the L4/5 translaminar space. Lateral views then show placement of the needle in the epidural space. Subsequent views show contrast material flowing superiorly and inferiorly in the epidural space. No vascular or intrathecal uptake is observed. At this point, using loss of resistance technique with saline and air, the epidural space was entered. This was confirmed following negative aspiration with injection of approximately 1.5cc of Isovue 200, showing excellent epidural flow without vascular or intrathecal uptake. At this point, 1cc of 1% lidocaine solution combined with 3cc or 20mg of dexamethasone and 6mg betamethasone was injected without incident. The patient tolerated the procedure well without signs or symptoms of complications prior to transfer to the recovery area continued monitoring without incident. The patient was then transferred to the recovery area where they were observed for an appropriate period of time after the injection. The patient reported a VAS score of 6 prior to the procedure and a post- procedure VAS of 0. POST OP INSTRUCTIONS The patient was provided a Pain Log to continue to record their response to the target-specific procedure prior to follow-up visit with their referring physician. Additionally, specific post-injection care instructions and a contact number to our office were provided if concerns arise regarding possible complications associated with the procedure are suspected.
== END 2022-05-26 09:55 | disposition home or self-care (01) ==
LOC: RAD 08:44
PROVIDERS: PCP Family Medicine; Referring Provider Physical Medicine & Rehabilitation; Visit Provider Physical Medicine & Rehabilitation
DX: M51.16 Intervertebral disc disorders with radiculopathy, lumbar region (principal); M48.061 Spinal stenosis, lumbar region without neurogenic claudication
CPT/HCPCS: 62323; 99152; J0702; J1100; J2250; J3490

== ENCOUNTER → 2022-06-03 10:44 | Outpatient (CLI) | payer MEDICARE, SELFPAY ==
--- NOTE | 2022-06-03 10:46 | DI.US.S_ITS ---
PROCEDURE: US RENAL COMPLETE INDICATIONS: RENAL CYSTS TECHNIQUE: Real-time scanning was performed of the kidneys and bladder, with image documentation. COMPARISON: [facility], CT, CT ABDOMEN PELVIS WO/W CON, 03/28/2022, 14:42. FINDINGS: Kidneys: Kidneys are normal in size. Right kidney measures 11.4 cm long; left kidney measures 12.4 cm long. Right renal cortical thickness is 1.0 cm; left renal cortical thickness is 1.0 cm. Renal cortical echotexture is normal. No hydronephrosis or nephrolithiasis. No suspicious solid mass lesions. There is a large simple appearing parapelvic cyst in left kidney measuring 11.9 x 11.2 x 9.6 cm in the superior to mid left kidney. Small renal cortical cysts are noted measuring up to 9 mm. Bladder: Pre-void bladder volume is 101 mL. Post-void residual is 18 mL. Pre-void images demonstrate no intraluminal masses or stones. On pre-void images, both ureteral jets are noted with color Doppler interrogation. (Of note, ureteral jets may not be detectable in up to 25% of cases due to insufficient differences in specific gravity between ureteral and bladder urine). Miscellaneous: No free pelvic fluid. Incidentally noted is a large gallstone. Liver has increased echotexture consistent with fatty infiltration. Mild splenomegaly. IMPRESSION: 1. A large simple appearing cyst in the superior to mid left kidney measuring 11.9 x 11.2 x 9.6 cm. 2. Small subcentimeter cysts in right kidney. 3. Cholelithiasis. 4. Fatty liver. 5. Mild splenomegaly. Dictated by: Matilda Shay M.D. on 06/03/2022 at 11:27 Approved by: Matilda Shay M.D. on 06/03/2022 at 11:32
== END ==
PROVIDERS: PCP Family Medicine; Referring Provider Urology; Visit Provider Urology
DX: N28.1 Cyst of kidney, acquired (principal); K80.20 Calculus of gallbladder without cholecystitis without obstruction; K76.0 Fatty (change of) liver, not elsewhere classified; R16.1 Splenomegaly, not elsewhere classified
CPT/HCPCS: 76770

== ENCOUNTER → 2022-12-05 08:15 | Outpatient (CLI) | payer MEDICARE, SELFPAY ==
--- NOTE | 2022-12-05 08:16 | DI.US.S_ITS ---
PROCEDURE: US RENAL COMPLETE INDICATIONS: Renal cyst follow-up TECHNIQUE: Real-time scanning was performed of the kidneys and bladder, with image documentation. COMPARISON: [facility], CT, CT ABDOMEN PELVIS WO/W CON, 03/28/2022, 14:42. [facility], US, US RENAL COMPLETE, 06/03/2022, 11:06. FINDINGS: Kidneys: Kidneys are normal in size. Right kidney measures 11.1 cm long; left kidney measures 12.1 cm long. Right renal cortical thickness is 1.3 cm; left renal cortical thickness is 1.9 cm. Renal cortical echotexture is normal. There is a 6 mm echogenic focus with posterior shadowing in mid right kidney, suspicious for a nonobstructive stone. No hydronephrosis or nephrolithiasis. There is a large simple appearing cyst in left kidney measuring 10.8 x 10.3 x 12.5 cm; previously measured 9.6 x 11.2 x 11.9 cm. Question a small cyst in right kidney measuring 1.6 cm. No suspicious solid mass lesions. Bladder: Pre-void bladder volume is 136 mL. Post-void residual is 0 mL. Pre-void images demonstrate no intraluminal masses or stones. On pre-void images, left ureteral jet is noted with color Doppler interrogation. (Of note, ureteral jets may not be detectable in up to 25% of cases due to insufficient differences in specific gravity between ureteral and bladder urine). Miscellaneous: No free pelvic fluid. IMPRESSION: 1. No significant change in the large simple appearing cyst in the superior pole of the left kidney. 2. A small right renal cyst. 3. Question a nonobstructive right renal stone. Dictated by: Matilda Shay M.D. on 12/05/2022 at 11:33 Approved by: Matilda Shay M.D. on 12/05/2022 at 11:42
== END ==
PROVIDERS: PCP Family Medicine; Referring Provider Urology; Visit Provider Urology
DX: N28.1 Cyst of kidney, acquired (principal); N52.01 Erectile dysfunction due to arterial insufficiency; N40.1 Benign prostatic hyperplasia with lower urinary tract symptoms; R39.9 Unspecified symptoms and signs involving the genitourinary system; R39.14 Feeling of incomplete bladder emptying; R31.29 Other microscopic hematuria; Z77.22 Contact with and (suspected) exposure to environmental tobacco smoke (acute) (chronic)
CPT/HCPCS: 76770; 99214

== ENCOUNTER → 2023-06-08 13:52 | Outpatient (CLI) | payer MEDICARE, SELFPAY ==
--- NOTE | 2023-06-08 13:53 | DI.US.S_ITS ---
PROCEDURE: US RENAL COMPLETE INDICATIONS: Follow-up renal cyst TECHNIQUE: Real-time scanning was performed of the kidneys and bladder, with image documentation. COMPARISON: [facility], , US RENAL COMPLETE, 12/05/2022, 9:03. FINDINGS: Kidneys: Kidneys are normal in size. Right kidney measures 11.1 cm long; left kidney measures 13.7 cm long. Right renal cortical thickness is 1.0 cm; left renal cortical thickness is 1.5 cm. Renal cortical echotexture is normal. No hydronephrosis or nephrolithiasis. No suspicious solid mass lesions. Bilateral cysts are present measuring 1.1 on the right compared to 1.6 cm and 12 cm on the left compared to old 12.5 cm on prior exam. Bladder: Pre-void bladder volume is 72 mL. Post-void residual is 35 mL. Pre-void images demonstrate no intraluminal masses or stones. On pre-void images, bilateral ureteral jets are noted with color Doppler interrogation. (Of note, ureteral jets may not be detectable in up to 25% of cases due to insufficient differences in specific gravity between ureteral and bladder urine). Miscellaneous: No free pelvic fluid. IMPRESSION: Stable appearance bilateral simple renal cysts. Dictated by: Lary Gaspar M.D. on 06/08/2023 at 18:10 Approved by: Lary Gaspar M.D. on 06/08/2023 at 18:11
== END ==
PROVIDERS: PCP Family Medicine; Referring Provider Urology; Visit Provider Urology
DX: N28.1 Cyst of kidney, acquired (principal)
CPT/HCPCS: 76770

== ENCOUNTER → 2023-09-08 12:47 | Outpatient (CLI) | payer MEDICARE, SELFPAY ==
--- NOTE | 2023-09-08 12:50 | DI.RAD.S_ITS ---
PROCEDURE: XR LUMBAR SPINE MIN 4V INDICATIONS: BACK PAIN TECHNIQUE: 5 views of the lumbar spine were acquired, including bilateral oblique views. COMPARISON: [facility], , XR LUMBAR SPINE MIN 4V, 12/25/2019, 11:38. FINDINGS: Bones: 5 nonrib-bearing vertebrae are present. There is normal bony alignment. No vertebral body compression fractures. No suspicious bony lesions. Degenerative disc space narrowing hypertrophic facet joints noted in the lower lumbar spine. Soft tissues: Laminated gallstone present in the right upper quadrant. Herniorrhaphy fasteners present right lower quadrant Oblique images: No pars defects. IMPRESSION: Degenerative disc disease and arthropathy without fracture or malalignment. Cholelithiasis Approved by: Cornelius Bowie M.D. on 09/08/2023 at 14:07
== END ==
PROVIDERS: PCP Family Medicine; Referring Provider Physical Medicine & Rehabilitation; Visit Provider Physical Medicine & Rehabilitation
DX: M47.27 Other spondylosis with radiculopathy, lumbosacral region (principal); M51.16 Intervertebral disc disorders with radiculopathy, lumbar region; M47.26 Other spondylosis with radiculopathy, lumbar region; M48.061 Spinal stenosis, lumbar region without neurogenic claudication; K80.20 Calculus of gallbladder without cholecystitis without obstruction
CPT/HCPCS: 72110

== ENCOUNTER → 2023-12-04 09:44 | Outpatient (CLI) | payer MEDICARE, SELFPAY ==
--- NOTE | 2023-12-04 09:45 | DI.US.S_ITS ---
PROCEDURE: US RENAL COMPLETE INDICATIONS: Follow-up renal cysts TECHNIQUE: Real-time scanning was performed of the kidneys and bladder, with image documentation. COMPARISON: [facility], , US RENAL COMPLETE, 06/08/2023, 14:13. FINDINGS: Kidneys: Kidneys are normal in size. Right kidney measures 10.9 cm long; left kidney measures 11.5 cm long. Right renal cortical thickness is 1.4 cm; left renal cortical thickness is 1.4 cm. Right nephrolithiasis is noted with a 3.6 millimeter stone present. Bilateral cystic lesions likely representing simple cysts with posterior sound enhancement, thin jimenez, no internal soft tissue component measuring 1 centimeter on the right and 10 x 8.4 x 13 centimeters on the left are noted (measuring 12 centimeters on prior study). Renal cortical echotexture is otherwise normal. No hydronephrosis . No suspicious solid mass lesions. Bladder: Pre-void bladder volume is 70 mL. Post-void residual is 12.4 mL. Pre-void images demonstrate no intraluminal masses or stones. On pre-void images, bilateral ureteral jets are noted with color Doppler interrogation. (Of note, ureteral jets may not be detectable in up to 25% of cases due to insufficient differences in specific gravity between ureteral and bladder urine). Miscellaneous: No free pelvic fluid. IMPRESSION: 1. Bilateral simple appearing renal cysts ; left 1 slightly enlarged since prior study. 2. Nonobstructive renal stone on the right Dictated by: Oscar Flores M.D. on 12/04/2023 at 16:17 Approved by: Oscar Flores M.D. on 12/04/2023 at 16:26
== END ==
LOC: US 09:44
PROVIDERS: PCP Family Medicine; Referring Provider Urology; Visit Provider Urology
DX: N28.1 Cyst of kidney, acquired (principal); N20.0 Calculus of kidney
CPT/HCPCS: 76770

== ENCOUNTER 2024-01-09 11:49 | Outpatient (CLI) | payer MEDICARE, SELFPAY ==
[2024-01-09] VITALS (9 sets, daily range): BP systolic 132–144; BP diastolic 68–83; PULSE 63–69; RESP 15–19; TEMP 37.1; O2SAT 98–99
--- NOTE | 2024-01-09 13:00 | DI.RAD.S_ITS ---
PROCEDURE: PAIN L/S FACET INJ/BLK 1ST BISHNU INDICATIONS: BILATERAL L4, L5 S1 MBB- LA COMPARISON: , , PAIN L/S FACET INJ/BLK 1ST BISHNU, 11/05/2019, 9:41. FINDINGS: Fluoroscopic spot filming was performed to verify placement of spinal needles at the bilateral L3-L4, L4-L5, and L5-S1 medial branch level(s), as labeled on the films. Appropriate location(s) of the needle tip(s) was confirmed by injection of iodinated contrast. IMPRESSION: Multilevel bilateral medial branch block performed by the referring clinician Dictated by: Isai Moore M.D. on 01/09/2024 at 15:28 Approved by: Isai Moore M.D. on 01/09/2024 at 15:29
[2024-01-09] MEDS: MIDAZOLAM 2 MG/2 ML VIAL IV (13:25)
[2024-01-09] MEDS: BUPIVACAINE 0.5% (PF) 10 ML VIAL 5 ML INJ (13:31)
[2024-01-09] MEDS: iopamidoL 15 ML VIAL 3 ML INJ (13:31)
[2024-01-09] MEDS: LIDOCAINE 1% 20 ML 5 ML INJ (13:31)
--- NOTE | 2024-01-09 13:48 | P.PCN_ITS ---
Date/Time/Diagnoses Date of procedure: 01/09/24 Time of procedure: 13:48 Pre-procedure diagnosis: 1. FACET ARTHROPATHY Post-procedure diagnosis: same Procedure Notes Procedure: 1. BILATERAL- L4, L5 and S1 DIAGNOSTIC MB BLOCKS with LA Anesthetic Indications: Noel is referred by Dr. Saunders for treatment of Bilateral Axial LBP. Physician: Rick Arriaga Total Fluoroscopy time (seconds): 9 Total sedation minutes: 14 Complications: none Procedure in detail & Post-procedure care: DESCRIPTION OF PROCEDURE Fluoroscopically guided, contrast-controlled bilateral L4, L5 and S1 medial branch blocks with 0.5cc of 0.5% Marcaine. Following review of allergy and review of potential side effects and complications, including, but not necessarily limited to, infection, allergic reaction, local tissue breakdown, nerve injury, paralysis, stroke and possible , the patient indicated that the patient understood and agreed to proceed. An informed consent document was signed by the patient, witnessed by a nurse, and placed in the patient's chart. After review of previous anaesthesic history and IV conscious sedation the patient was deemed safe to proceed with today's procedure with IV conscious sedation as ASA class II designation. Safety time-out was performed to confirm patient ID, procedure to be performed and site of procedure. IV sedation was accomplished with a combination of 2mg of Versed was administered by the RN after DO order, titrated to patient comfort during the course of the procedure while the patient remained responsive to all verbal commands In the prone position, following sterile prep and drape of the lumbar region, the right L4, L5 and S1 anatomical location of the medial branch of the dorsal ramus was identified fluoroscopically. Subsequently an anesthetic skin wheal using 1% lidocaine solution was initiated at each of the anatomical spots. Subsequently then a 22-gauge 3.5-inch spinal needle was atraumatically introduced and advanced under fluoroscopic guidance at each of the corresponding sites at the right L4, L5 and S1 MB. After negative aspiration, 0.2cc of Isovue 200 was injected, confirming placement without vascular or intrathecal uptake. Subsequently then 0.5cc of 0.5% Marcaine solution was injected at each of the corresponding sites at the right L4, L5 and S1 medial branch locations. The identical procedure was replicated on the left. The patient tolerated the procedure well without signs or symptoms of complications prior to transfer to the recovery area continued monitoring without incident. Post-procedure, the patient was monitored initiating provocative activities to measure the amount of relief from block of the facetogenic pain. The patient reported a VAS of 7 prior to the procedure and a post-procedure VAS of 1. It has been a pleasure to assist in the diagnostic and therapeutic care of your patient. POST OP INSTRUCTIONS The patient was provided with a Pain Log to complete over the next several hours and subsequent days prior to the patient's follow up with the ordering physician. If the patient has professional nursing tutor relief to the solution applied, then they may be a candidate for medial branch rhizotomy. The patient is aware, was provided, once again, with a Pain Log and will follow up with the referring physician for review and clinical correlation
== END 2024-01-09 14:01 | disposition home or self-care (01) ==
LOC: RAD 11:50
PROVIDERS: PCP Family Medicine; Referring Provider Physical Medicine & Rehabilitation; Visit Provider Physical Medicine & Rehabilitation
DX: M47.816 Spondylosis without myelopathy or radiculopathy, lumbar region (principal); M47.817 Spondylosis without myelopathy or radiculopathy, lumbosacral region
CPT/HCPCS: 64493; 64494; 99152; J2250

== ENCOUNTER → 2024-02-22 11:15 | Outpatient (CLI) | payer MEDICARE, SELFPAY ==
[2024-02-22 11:57] LABS: Add Manual Diff / Slide Review NO; Basophils Absolute Auto 0 /uL (0-100); Basophils Percent Auto 0.3 % (0-2); Eosinophils Absolute Auto 100 /uL (0-450); Eosinophils Percent Auto 2.7 % (2-4); Hematocrit 44.7 % (41-53); Hemoglobin 15.6 g/dL (13.5-17.5); Lymphocytes Absolute Auto 1100 /uL (1100-4500); Lymphocytes Percent Auto 21.3 % (25-40); Mean Corpuscular HGB Conc 34.9 % (30-36); Mean Corpuscular Hemoglobin 31.1 PG (26-34); Mean Corpuscular Volume 89.2 fL (80-100); Monocytes Absolute Auto 300 /uL (0-900); Monocytes Percent Auto 5.9 % (3-14); Neutrophils Absolute Auto 3600 /uL (1500-7000); Neutrophils Percent Auto 69.8 % (50-75); Platelet Count 147 X10^3/uL (150-400); Red Blood Cell Count 5.01 X10^6/uL (4.5-5.9); Red Cell Distribution Width 14.6 % (11.6-14.8); White Blood Cell Count 5.2 X10^3/uL (4.5-11.0)
[2024-02-22 12:39] LABS: Alanine Aminotransferase 24 IU/L (<50); Albumin 4.6 g/dL (3.5-5.0); Albumin Globulin Ratio 2.2 (1.0-2.8); Alkaline Phosphatase 57 U/L (38-126); Aspartate Aminotransferase 30 IU/L (17-59); BUN Creatinine Ratio 15.4 (6-22); Bilirubin Total 1.2 mg/dL (0.2-1.3); Blood Urea Nitrogen 23 mg/dL (9-20); Calcium 9.3 mg/dL (8.4-10.2); Carbon Dioxide 28 mmol/L (22-32); Chloride 107 mmol/L (98-107); Cholesterol 160 mg/dL (140-199); Estimated Glomerular Filt Rate 49 mL/min (>60); Globulin 2.1 g/dL (1.7-4.1); Glucose 116 mg/dL (80-110); HDL Cholesterol 45 mg/dL (40-60); HEMOLYSIS < 15 (0-50); LDL Cholesterol Calculated 89 mg/dL (<100); Potassium 4.7 mmol/L (3.4-5.1); Sodium 142 mmol/L (137-145); Total Protein 6.7 g/dL (6.3-8.2); Triglycerides 129 mg/dL (35-150)
[2024-02-22 13:03] LABS: Prostate Specific Antigen Scrn 4.93 ng/mL (0.1-4.0)
== END ==
PROVIDERS: PCP Family Medicine; Referring Provider Family Medicine; Visit Provider Family Medicine
DX: Z00.00 Encounter for general adult medical examination without abnormal findings (principal); Z12.5 Encounter for screening for malignant neoplasm of prostate; N18.9 Chronic kidney disease, unspecified; I12.9 Hypertensive chronic kidney disease with stage 1 through stage 4 chronic kidney disease, or unspecified chronic kidney disease
CPT/HCPCS: 36415; 80053; 80061; 85025; G0103

== ENCOUNTER 2024-02-29 09:41 | Outpatient (CLI) | payer MEDICARE, SELFPAY ==
[2024-02-29] VITALS (11 sets, daily range): BP systolic 136–162; BP diastolic 78–97; PULSE 60–72; RESP 12–74; TEMP 36.8; O2SAT 12–100
--- NOTE | 2024-02-29 09:42 | DI.RAD.S_ITS ---
PROCEDURE: PAIN L/S FACET INJ/BLK 1ST BISHNU INDICATIONS: LUMBAR ARTHROPATHY COMPARISON: [facility], , PAIN L/S FACET INJ/BLK 1ST BISHNU, 01/09/2024, 13:30. FINDINGS/IMPRESSION: Fluoroscopic spot filming was performed to verify placement of spinal needles at the bilateral L4, L5 and S1 level(s), as labeled on the films. Appropriate location(s) of the needle tip(s) was confirmed by injection of iodinated contrast. Dictated by: Alexey Paulino M.D. on 02/29/2024 at 16:38 Approved by: Alexey Paulino M.D. on 02/29/2024 at 16:38
[2024-02-29] MEDS: MIDAZOLAM 2 MG/2 ML VIAL 1 MG IV ×2 (10:54→11:00)
[2024-02-29] MEDS: iopamidoL 15 ML VIAL 3 ML INJ (10:59)
[2024-02-29] MEDS: LIDOCAINE 1% 20 ML 5 ML INJ (11:00)
[2024-02-29] MEDS: LIDOCAINE 2% INJ SDV 5ML 1 ML INJ (11:00)
--- NOTE | 2024-02-29 11:19 | P.PCN_ITS ---
Date/Time/Diagnoses Date of procedure: 02/29/24 Time of procedure: 11:19 Pre-procedure diagnosis: 1. FACET ARTHROPATHY Post-procedure diagnosis: same Procedure Notes Procedure: 1. BILATERAL- L4, L5 and S1 DIAGNOSTIC MB BLOCKS with SA Anesthetic Indications: Noel is referred by Dr. Saunders for treatment of Bilateral Axial LBP. Physician: Rick Arriaga Total Fluoroscopy time (seconds): 10 Total sedation minutes: 14 Complications: none Procedure in detail & Post-procedure care: DESCRIPTION OF PROCEDURE Fluoroscopically guided, contrast-controlled bilateral L4, L5 and S1 medial branch blocks with 0.5cc of 2% Lidocaine. Following review of allergy and review of potential side effects and complications, including, but not necessarily limited to, infection, allergic reaction, local tissue breakdown, nerve injury, paralysis, stroke and possible , the patient indicated that the patient understood and agreed to proceed. An informed consent document was signed by the patient, witnessed by a nurse, and placed in the patient's chart. After review of previous anaesthesic history and IV conscious sedation the patient was deemed safe to proceed with today's procedure with IV conscious sedation as ASA class II designation. Safety time-out was performed to confirm patient ID, procedure to be performed and site of procedure. IV sedation was accomplished with a combination of 2mg of Versed was administered by the RN after DO order, titrated to patient comfort during the course of the procedure while the patient remained responsive to all verbal commands In the prone position, following sterile prep and drape of the lumbar region, the right L4, L5 and S1 anatomical location of the medial branch of the dorsal ramus was identified fluoroscopically. Subsequently an anesthetic skin wheal using 1% lidocaine solution was initiated at each of the anatomical spots. Subsequently then a 22-gauge 3.5-inch spinal needle was atraumatically introduced and advanced under fluoroscopic guidance at each of the corresponding sites at the right L4, L5 and S1 MB. After negative aspiration, 0.2cc of Isovue 200 was injected, confirming placement without vascular or intrathecal uptake. Subsequently then 0.5cc of 2% Lidocaine solution was injected at each of the corresponding sites at the right L4, L5 and S1 medial branch locations. The identical procedure was replicated on the left. The patient tolerated the procedure well without signs or symptoms of complications prior to transfer to the recovery area continued monitoring without incident. Post-procedure, the patient was monitored initiating provocative activities to measure the amount of relief from block of the facetogenic pain. The patient reported a VAS of 7 prior to the procedure and a post-procedure VAS of 1. It has been a pleasure to assist in the diagnostic and therapeutic care of your patient. POST OP INSTRUCTIONS The patient was provided with a Pain Log to complete over the next several hours and subsequent days prior to the patient's follow up with the ordering physician. 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 The patient is aware, was provided, once again, with a Pain Log and will follow up with the referring physician for review and clinical correlation
== END 2024-02-29 11:40 | disposition home or self-care (01) ==
PROVIDERS: PCP Family Medicine; Referring Provider Physical Medicine & Rehabilitation; Visit Provider Physical Medicine & Rehabilitation
DX: M47.816 Spondylosis without myelopathy or radiculopathy, lumbar region (principal); M47.817 Spondylosis without myelopathy or radiculopathy, lumbosacral region
CPT/HCPCS: 64493; 64494; 99152; J2250

== ENCOUNTER 2024-05-28 10:41 | Outpatient (CLI) | payer MEDICARE, SELFPAY ==
[2024-05-28] VITALS (13 sets, daily range): BP systolic 146–164; BP diastolic 82–104; PULSE 78–90; RESP 14–19; TEMP 36.9; O2SAT 94–97
[2024-05-28] MEDS: MIDAZOLAM 2 MG/2 ML VIAL IV (11:47)
[2024-05-28] MEDS: LIDOCAINE 1% 20 ML 5 ML INJ (11:53)
[2024-05-28] MEDS: BUPIVACAINE 0.5% (PF) 10 ML VIAL 5 ML INJ (11:53)
[2024-05-28] MEDS: MIDAZOLAM 2 MG/2 ML VIAL 1 MG IV (12:05)
--- NOTE | 2024-05-28 12:31 | P.PCN_ITS ---
Date/Time/Diagnoses Date of procedure: 05/28/24 Time of procedure: 12:31 Pre-procedure diagnosis: 1. RECALCITRANT FACET ARTHROPATHY Post-procedure diagnosis: same Procedure Notes Procedure: 1. BILATERAL L4 AND L5 MEDIAL BRANCH RADIOFREQUENCY NEUROTOMY AND S1 DORSAL RAMUS BRANCH RADIOFREQUENCY NEUROTOMY Indications: Noel is referred by Dr. Saunders for treatment of facet arthropathy. Physician: Rick Arriaga Total Fluoroscopy time (seconds): 16 Total sedation minutes: 40 Complications: none Procedure in detail & Post-procedure care: DESCRIPTION OF PROCEDURE Bilateral L4 and L5 medial branch radiofrequency neurotomy and bilateral S1 dorsal ramus radiofrequency neurotomy under fluoroscopy with conscious sedation. The patient is well known to this clinic having undergone previous facet injections with good but temporary relief. The patient has experienced appropriate, concordant relief with previous facet and median branch blocks but the patient's pain has been recalcitrant to further conservative measures. Therefore, based upon the patient's relief and persistent symptoms, the patient is considered an appropriate candidate for facet rhizotomy. All of the patient's questions regarding the risks versus benefits of the procedure, including, but not limited to, bleeding, infection, temporary as well as lasting nerve injury, paralysis, stroke, and , as well treatment alternatives were answered to satisfaction. After obtaining informed consent, denial of pertinent drug allergies, as well as being made aware of the potential risks of bleeding, infection, spinal cord trauma, paralysis, temporary and permanent nerve damage, seizure, stroke, and possible , the patient was brought to the fluoroscopy suite and positioned prone on the fluoroscopy table. The lumbar region was prepped in usual sterile fashion and covered with a fenestrated drape in the usual sterile fashion. Appropriate monitors applied including pulse oximeter, pulse, and blood pressure for regular monitoring throughout the procedure. After review of previous anaesthesic history and IV conscious sedation the patient was deemed safe to proceed with today's procedure with IV conscious sedation as ASA class II designation. Safety time-out was performed to confirm patient ID, procedure to be performed and site of procedure. IV sedation was accomplished with a combination of 3mg of Versed administered by the RN after DO order, titrated to patient comfort during the course of the procedure while the patient remained responsive to all verbal commands. After local infiltration using 1% lidocaine, under fluoroscopic guidance, a 10- cm RF insulated needle with a 10-mm active tip was positioned parallel to the junction of the right sacral ala and the superior articulating process where the S1 dorsal ramus resides. Needle placement was confirmed with motor stimulation of .5v on the right which produced local stimulation without radicular component. The stimulation was then increased to 2v with, once again, only local multifidus stimulation without radicular component. The needle was then removed and the identical procedure was performed along the length of the right L5 medial branch with motor stimulation at .7v on the right. The identical procedure was once again performed along the length of the right L4 medial branch with motor stimulation of .5v on the right. The medial branches were then anesthetised with 0.5% Marcaine. This was then followed by two discreet lesions performed at 80 degrees Celsius for 90 seconds each. The identical procedure was repeated on the left. The patient tolerated the procedure well without signs or symptoms of complications prior to transfer to the recovery area continued monitoring without incident. The patient was then transferred to the recovery area where they were observed for an appropriate period of time after the injection. The patient reported a VAS score of 8 prior to the procedure and a post-procedure VAS of 1. POST OP INSTRUCTIONS The patient was provided a Pain Log to continue to record the patient's response to the target-specific procedure prior to the patient's follow-up visit with the referring physician. Additionally, specific post-injection care instructions and a contact number to our office were provided if concerns arise regarding possible complications associated with the procedure are suspected.
== END 2024-05-28 12:46 | disposition home or self-care (01) ==
PROVIDERS: PCP Family Medicine; Referring Provider Physical Medicine & Rehabilitation; Visit Provider Physical Medicine & Rehabilitation
DX: M47.816 Spondylosis without myelopathy or radiculopathy, lumbar region (principal); M47.817 Spondylosis without myelopathy or radiculopathy, lumbosacral region
CPT/HCPCS: 64635; 64636; 99152; 99153; J2250

== ENCOUNTER → 2024-06-03 15:10 | Outpatient (CLI) | payer MEDICARE, SELFPAY ==
--- NOTE | 2024-06-03 15:11 | DI.US.S_ITS ---
PROCEDURE: US RENAL COMPLETE INDICATIONS: Follow-up renal cysts TECHNIQUE: Real-time scanning was performed of the kidneys and bladder, with image documentation. COMPARISON: , , US RENAL COMPLETE, 12/04/2023, 10:18. FINDINGS: Kidneys: Kidneys are normal in size. Right kidney measures 10.7 cm long; left kidney measures 12.6 cm long. Right renal cortical thickness is 1.2 cm; left renal cortical thickness is 1.7 cm. Renal cortical echotexture is normal. No hydronephrosis. There is a 0.6 cm right renal stone. No hydronephrosis. There is also a 8.7 x 6.5 x 10.5 cm exophytic left renal cyst. This has decreased in size compared to the prior study which measured approximately 10.0 x 8.4 x 13.0 cm. No suspicious solid mass lesions. Bladder: Pre-void bladder volume is 47 mL. Post-void residual is 12 mL. Pre-void images demonstrate no intraluminal masses or stones. On pre-void images, bilateral ureteral jets were not visualized with color Doppler interrogation. (Of note, ureteral jets may not be detectable in up to 25% of cases due to insufficient differences in specific gravity between ureteral and bladder urine). Miscellaneous: No free pelvic fluid. Mild prostatomegaly. IMPRESSION: 1. A 0.6 cm right renal stone without hydronephrosis. 2. Persistent exophytic left renal cyst which has decreased in size measuring up to 10.5 cm versus 13 cm previously. 3. Mild prostatomegaly. Dictated by: Ethan eBll M.D. on 06/03/2024 at 18:33 Approved by: Ethan Bell M.D. on 06/03/2024 at 18:38
== END ==
PROVIDERS: PCP Family Medicine; Referring Provider Urology; Visit Provider Urology
DX: N28.1 Cyst of kidney, acquired (principal); N20.0 Calculus of kidney; N40.0 Benign prostatic hyperplasia without lower urinary tract symptoms
CPT/HCPCS: 76770

== ENCOUNTER → 2024-06-05 13:49 | Outpatient (CLI) | payer MEDICARE, SELFPAY ==
--- NOTE | 2024-06-05 13:50 | DI.RAD.S_ITS ---
PROCEDURE: XR KUB INDICATIONS: right kidney stone TECHNIQUE: One view of the abdomen acquired. COMPARISON: [facility], , RENAL COMPLETE, 06/03/2024, 15:28. FINDINGS AND IMPRESSION: Suspect large gallstone in the right upper quadrant. No definite renal calculus is identified however, this radiograph is obscured by overlapping stool. Overall increased fecal loading. Right pelvis postsurgical changes. Degenerative osseous changes. Dictated by: Felix Goldsmith M.D. on 06/05/2024 at 15:27 Approved by: Felix Goldsmith M.D. on 06/05/2024 at 15:39
== END ==
LOC: RAD 13:49
PROVIDERS: PCP Family Medicine; Referring Provider Urology; Visit Provider Urology
DX: N20.0 Calculus of kidney (principal)
CPT/HCPCS: 74018

== ENCOUNTER → 2024-12-20 10:48 | Outpatient (CLI) | payer MEDICARE, SELFPAY ==
--- NOTE | 2024-12-20 10:49 | DI.RAD.S_ITS ---
PROCEDURE: XR KNEE LT 3V INDICATIONS: screening TECHNIQUE: 3 views of the knee were acquired. COMPARISON: None. FINDINGS: Bones: No fractures or dislocations. No suspicious bony lesions. Tiny marginal osteophytes in the patellofemoral compartment. Joint space is maintained. Soft tissues: No joint effusion. No suspicious soft tissue calcifications. IMPRESSION: Evidence of early osteoarthritis. Dictated by: Chi Grullon M.D. on 12/20/2024 at 13:36 Approved by: Chi Grullon M.D. on 12/20/2024 at 13:37
--- NOTE | 2024-12-20 10:49 | DI.RAD.S_ITS ---
PROCEDURE: XR KUB INDICATIONS: Follow-up right renal calculus TECHNIQUE: One view of the abdomen acquired. COMPARISON: [facility], CR, XR KUB, 06/05/2024, 13:47. FINDINGS: Surgical changes and devices: Hernia repair coils in the right lower quadrant. Bowel: Mild fecal retention. No abnormally dilated loops of bowel. Prominent calcified stone in the gallbladder similar to prior. Soft tissues: Visualized solid organ contours appear normal in size. No visible urinary calculus. Bones: No suspicious bony lesions. IMPRESSION: Nonobstructed bowel gas pattern. Cholelithiasis. Dictated by: Chi Grullon M.D. on 12/20/2024 at 14:32 Approved by: Chi Grullon M.D. on 12/20/2024 at 14:33
== END ==
PROVIDERS: PCP Family Medicine; Referring Provider Urology; Visit Provider Urology
DX: N20.0 Calculus of kidney (principal); M25.562 Pain in left knee; M17.12 Unilateral primary osteoarthritis, left knee; K80.20 Calculus of gallbladder without cholecystitis without obstruction
CPT/HCPCS: 73562; 74018

== ENCOUNTER → 2024-12-27 15:35 | Outpatient (CLI) | payer MEDICARE, SELFPAY ==
--- NOTE | 2024-12-27 15:36 | DI.US.S_ITS ---
PROCEDURE: US RENAL COMPLETE INDICATIONS: Left renal cysts TECHNIQUE: Real-time scanning was performed of the kidneys and bladder, with image documentation. COMPARISON: [facility], , US RENAL COMPLETE, 06/03/2024, 15:28. FINDINGS: Kidneys: Kidneys are normal in size. Right kidney measures 10.1 cm long; left kidney measures 12.8 cm long. Right renal cortical thickness is 1.3 cm; left renal cortical thickness is 1.8 cm. Of the right kidney contains a 1.3 cm anechoic cyst with a coarse mural calcification. Right renal morphology is otherwise normal. A large, unilocular anechoic cyst arises from the lower pole left kidney measuring 9.3 x 8.4 x 7.1 cm, previously 8.7 x 10.5 x 6.5 cm. No solid component, peripheral echogenicity, or mural nodularity. No hydronephrosis or nephrolithiasis. No suspicious solid mass lesions. Bladder: Pre-void bladder volume is 76 mL. Post-void residual is 16 mL. Limited views of the urinary bladder due to incomplete distention. Pre-void images demonstrate no intraluminal masses or stones. On pre-void images, neither ureteral jets are noted with color Doppler interrogation. (Of note, ureteral jets may not be detectable in up to 25% of cases due to insufficient differences in specific gravity between ureteral and bladder urine). Miscellaneous: No free pelvic fluid. Incidental note made of wall echo shadow sign in the gallbladder fossa towards the fundus indicating a 3.1 cm gallstone. The visible liver is mildly hyperechoic. IMPRESSION: Stable left renal cyst. Right renal parenchymal calcification, appears to be associated with an anechoic cyst wall. This could be a small calyceal diverticulum, developed since the prior exam if this calcification is associated with the collecting system (though it appears more peripheral). Cholelithiasis and hepatic steatosis. Dictated by: Hillary Marques M.D. on 12/28/2024 at 13:05 Approved by: Hillary Marques M.D. on 12/28/2024 at 13:12
--- NOTE | 2024-12-27 15:36 | DI.MRI.S_ITS ---
PROCEDURE: MR KNEE LT WO CON INDICATIONS: Left knee pain. screening for menicus tear TECHNIQUE: Noncontrast sagittal PD fast spin echo and T2 fast spin echo with fat saturation, sagittal 3-D FLASH with fat saturation; coronal T1 spin echo and PD fast spin echo with fat saturation, and axial PD fast spin echo with fat saturation through the knee. COMPARISON: [facility], CR, XR KNEE LT 3V, 12/20/2024, 11:22. FINDINGS: Image quality: Excellent. Menisci: Linear horizontal and oblique high T2 signal intensity within the middle and peripheral thirds of the medial meniscal body and posterior horn, demonstrating inferior articular surface extension, indicating oblique tearing. Lateral meniscus intact. Cruciate ligaments: The anterior and posterior cruciate ligaments appear intact. Medial structures: The medial collateral ligament appears intact. Visualized portions of the pes anserinus tendons appear normal. No abnormal bursal fluid. Lateral structures: The lateral collateral ligament demonstrates moderate T2 signal elevation at the femoral origin. The long and short heads of the biceps femoris tendon appear intact. The popliteus tendon appears normal. Iliotibial band appears normal. Anterior structures: The quadriceps and patellar tendons appear intact. Mild T2 signal elevation within the quadriceps and patellar tendons at the patellar insertion sites. Patellar alignment is normal. No femoral trochlear dysplasia or ventral trochlear prominence. No edema in the infrapatellar fat pad. Bones and cartilage: No bone marrow contusions or fractures. Subchondral cyst formation within the medial and lateral femoral trochlea. Moderate articular cartilage loss diffusely overlies the weight-bearing aspects of the medial femoral condyle and medial tibial plateau. Moderate articular cartilage loss overlies the medial and lateral patellar facets. High-grade articular cartilage loss overlies the central femoral trochlea Joint space: There is physiologic knee joint fluid. Small Riley's cyst. Normal appearing synovial plicae are incidentally noted. IMPRESSION: 1. Tricompartmental osteoarthritis with associated articular cartilage loss. 2. Partial-thickness lateral collateral ligament tear. 3. Medial meniscal tear. 4. Quadriceps and patellar tendinopathy. Dictated by: Maximo Montalvo M.D. on 12/30/2024 at 11:38 Approved by: Maximo Montalvo M.D. on 12/30/2024 at 11:40
== END ==
LOC: US 15:35
PROVIDERS: PCP Family Medicine; Referring Provider Urology; Visit Provider Urology
DX: S83.242A Other tear of medial meniscus, current injury, left knee, initial encounter (principal); S83.422A Sprain of lateral collateral ligament of left knee, initial encounter; M17.12 Unilateral primary osteoarthritis, left knee; M71.22 Synovial cyst of popliteal space [Baker], left knee; N28.1 Cyst of kidney, acquired; K80.20 Calculus of gallbladder without cholecystitis without obstruction; K76.0 Fatty (change of) liver, not elsewhere classified
CPT/HCPCS: 73721; 76770